=== PATIENT | female | born 1940 | race Caucasian/White ===

== ENCOUNTER 2021-02-14 01:33 | Emergency (ER) | payer BC ==
[~2021-02-14] VITALS: Ht 162.6 cm; Wt 72.7 kg
[2021-02-14 02:02] VITALS: BP 161/69
--- NOTE | 2021-02-14 02:26 | PHYS DOC ---
Past Medical History Additional Past Medical Histor: chronic leg cramps Past Surgical History: Hysterectomy General Adult EDM: Chief Complaint: MULTIPLE TRAUMA/FALL HPI: HPI: Patient is a 80 year old female who present to ER for evaluation of head injury. Patient has history of chronic leg cramping, she woke up this morning with severe leg cramping that she attributes as [employer]. Patient was having cramping in her leg so she got up out of her bed walked into her kitchen then she fell down on the floor. Patient did not have any chest pain or headache prior to the fall. Patient struck the back of her head on the ground, had a hematoma in the back of her head, patient was acting confused. Patient denies any back pain, no upper or lower extremity pain. Patient denies any chest pain or any trouble breathing. Patient has no history of diabetic. EMS were called, they checked her blood sugar and it was 95. Her family elected to bring her to the ER by private vehicle Review of Systems: Review of Systems: Constitutional: Denies fever or chills. [] Eyes: Denies change in visual acuity. [] HENT: Denies nasal congestion or sore throat. Positive for head injury Respiratory: Denies cough or shortness of breath. [] Cardiovascular: Denies chest pain or edema. [] GI: Denies abdominal pain, nausea, vomiting, bloody stools or diarrhea. [] : Denies dysuria. [] Musculoskeletal: Denies back pain or joint pain. [] Integument: Denies rash. [] Neurologic: Positive for headache, no focal weakness or numbness. Endocrine: Denies polyuria or polydipsia. [] Lymphatic: Denies swollen glands. [] Psychiatric: Denies depression or anxiety. [] Heart Score: C/O Chest Pain: N/A Risk Factors: Risk Factors: DM, Current or recent (<one month) smoker, HTN, HLP, family history of CAD, obesity. Risk Scores: Score 0 - 3: 2.5% MACE over next 6 weeks - Discharge Home Score 4 - 6: 20.3% MACE over next 6 weeks - Admit for Clinical Observation Score 7 - 10: 72.7% MACE over next 6 weeks - Early Invasive Strategies Allergies: Allergies: Allergies Coded Allergies Type Severity Reaction Last Updated Verified No Known Drug Allergies 02/14/21 No Physical Exam: PE: Constitutional: Well developed, well nourished, no acute distress, non-toxic appearance. [] HENT: Normocephalic, large goose egg on occipital area, bilateral external ears normal, oropharynx moist, no oral exudates, nose normal. [] Eyes: PERRLA, EOMI, conjunctiva normal, no discharge. [] Neck: Normal range of motion, no tenderness, supple, no stridor. [] Cardiovascular:Heart rate regular rhythm, no murmur [] Lungs & Thorax: Bilateral breath sounds clear to auscultation [] Abdomen: Bowel sounds normal, soft, no tenderness, no masses, no pulsatile masses. [] Skin: Warm, dry, no erythema, no rash. [] Back: No tenderness, no CVA tenderness. [] Extremities: No tenderness, no cyanosis, no clubbing, ROM intact, no edema. [] Neurologic: Alert and oriented X 3, normal motor function, normal sensory function, no focal deficits noted. [] Psychologic: Affect normal, judgement normal, mood normal. [] Current Patient Data: Labs: Laboratory Tests Test 02/14/21 02:13 Glucose (Fingerstick) 142 mg/dL (70-99) H Vital Signs: Vital Signs Date Time Temp Pulse Resp B/P (MAP) Pulse Ox O2 Delivery O2 Flow Rate FiO2 02/14/21 02:02 97.7 81 18 161/69 98 Room Air 97.7 EKG: EKG: EKG was done at 2028, heart rate 74 bpm, sinus rhythm, no ST segment elevation. Radiology/Procedures: Radiology/Procedures: [][facility] [address] [place] [address] IMAGING REPORT Signed PATIENT: ANN FOX JACCOUNT: [id number] : 1940 LOCATION: ER AGE: 80 SEX: F EXAM STATUS: REG ER ORD. PHYSICIAN: DAVINA QUILES DO REASON: FELL AT HOME, HIT BACK OF HEAD, DURANT, NECK PAIN PROCEDURE: CT HEAD AND CERVICAL SPINE WO EXAM: CT head and cervical spine without contrast INDICATION: Fell at home, hit back of head, headache and neck pain COMPARISON: None TECHNIQUE: Axial CT imaging through the head and cervical spine without intravenous contrast. Sagittal and coronal reformats of the cervical spine were obtained. One or more of the following individualized dose reduction techniques were utilized for this examination: 1. Automated exposure control 2. Adjustment of the mA and/or kV according to patient size 3. Use of iterative reconstruction technique. FINDINGS: CT head: The ventricles and sulci are prominent. Salvador-white matter differentiation is maintained. There is no intracranial hemorrhage, acute infarct, or mass lesion. Basal cisterns are clear. The skull is intact. There is a left parietal scalp hematoma.. Mild mucosal thickening in the inferior right maxillary sinus. Globes and orbits are intact. CT cervical spine: No acute fracture. There is minimal listhesis at multiple levels. There is moderate disc space narrowing at C2-C3 and C4-C5. Mild disc space narrowing at the remaining levels. Small anterior osteophytes in the lower cervical spine. Multilevel facet arthrosis and mild foraminal narrowing, greater on the right. Prevertebral soft tissues is normal. IMPRESSION: 1. No acute intracranial abnormality. Left parietal scalp hematoma. 2. No acute osseous abnormality cervical spine. 3. 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 Electronically signed by: Radhika Ogden MD (02/14/2021 3:06 AM) [id number] DICTATED and SIGNED BY: RADHIKA OGDEN MD DATE: 02/14/21 [id number] 0 Course & Med Decision Making: Course & Med Decision Making Pertinent Labs and Imaging studies reviewed. (See chart for details) Patient is a 80-year-old female who was brought here by family due to head injury, CT head and C-spine did not show any problem, EKG was normal, lab work came back normal as well. Patient has chronic leg cramping syndrome, patient will need to follow-up with her family physician for reevaluation treatment on Wednesday. Viral Disclaimer: Viral Disclaimer: This electronic medical record was generated, in whole or in part, using a voice recognition dictation system. Departure Departure Impression: Primary Impression: Closed head injury Additional Impression: Concussion Disposition: HOME / SELF CARE / HOMELESS Condition: IMPROVED Referrals: OSKAR PINEDA MD (PCP) Follow up with your doctor on Wednesday for reevaluation Patient Instructions: Concussion and Brain Injury, Head Injury, Adult Additional Instructions: Thank you for visiting our Emergency Department. We appreciate you trusting us with your care. If any additional problems come up don't hesitate to return to visit us. Please follow up with your primary care provider so they can plan additional care if needed and know about the problem that you had. If symptoms worsen come back to the Emergency Department. Any concerning symptoms that start such as chest pain, shortness of air, weakness or numbness on one side of the body, running high fevers or any other concerning symptoms return to the ER. DAVINA QUILES DO Feb 14, 2021 02:26
--- NOTE | 2021-02-14 03:08 | RAD ---
EXAM: CT head and cervical spine without contrast INDICATION: Fell at home, hit back of head, headache and neck pain COMPARISON: None TECHNIQUE: Axial CT imaging through the head and cervical spine without intravenous contrast. Sagitta l and coronal reformats of the cervical spine were obtained. One or more of the following individualized dose reduction techniques were utilized for this examinat ion: 1. Automated exposure control 2. Adjustment of the mA and/or kV according to patient size 3. Use of iterative reconstruction technique. FINDINGS: CT head: The ventricles and sulci are prominent. Salvador-white matter differentiation is maintained. There is no intracranial hemorrhage, acute infarct, or mass lesion. Basal cisterns are clear. The skull is intact. There is a left parietal scalp hematoma.. Mild mucosal thickening in the inferio r right maxillary sinus. Globes and orbits are intact. CT cervical spine: No acute fracture. There is minimal listhesis at multiple levels. There is moderate disc space narrow ing at C2-C3 and C4-C5. Mild disc space narrowing at the remaining levels. Small anterior osteophytes in the lower cervical spine. Multilevel facet arthrosis and mild foraminal narrowing, greater on the right. Prevertebral soft tissues is normal. IMPRESSION: 1. No acute intracranial abnormality. Left parietal scalp hematoma. 2. No acute osseous abnormality cervical spine. 3. 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 Electronically signed by: Radhika Ogden MD (02/14/2021 3:06 AM) [id number]
[2021-02-14 04:00] LABS: BASO # 0.1 x10^3/uL (0.0-0.2); BASO % 1 % (0-3); EOS % 0 % (0-3); HEMATOCRIT 43.1 % (36.0-47.0); HEMOGLOBIN 14.9 g/dL (12.0-15.5); LYMPH # 1.7 x10^3/uL (1.0-4.8); LYMPH % 14 % (24-48); MEAN CORPUSCULAR HEMOGLOBIN 31 pg (25-35); MEAN CORPUSCULAR HGB CONC 35 g/dL (31-37); MEAN CORPUSCULAR VOLUME 90 fL (79-100); MONO # 1.1 x10^3/uL (0.0-1.1); MONO % 9 % (0-9); NEUT # 9.3 x10^3/uL (1.8-7.7); NEUT % 76 % (31-73); PLATELET COUNT 180 x10^3/uL (140-400); RED BLOOD COUNT 4.77 x10^6/uL (3.50-5.40); RED CELL DISTRIBUTION WIDTH 13.5 % (11.5-14.5); WHITE BLOOD COUNT 12.3 x10^3/uL (4.0-11.0)
[2021-02-14 04:21] LABS: CALCIUM 9.2 mg/dL (8.5-10.1); CREATININE 0.9 mg/dL (0.6-1.0); GFR 60.1; POTASSIUM 3.7 mmol/L (3.5-5.1)
[2021-02-14 04:27] LABS: ALBUMIN 3.9 g/dL (3.4-5.0); ALBUMIN/GLOBULIN RATIO 1.1 (1.0-1.7); MAGNESIUM 2.2 mg/dL (1.8-2.4); TOTAL BILIRUBIN 0.4 mg/dL (0.2-1.0); TOTAL PROTEIN 7.5 g/dL (6.4-8.2)
--- NOTE | 2021-02-14 15:52 | EKG ---
[facility] [address] [place] [address] Test Date: 2021-02-14 Test Time: 03:29:51 Pat Name: ANN FOX Department: Room: Gender: F [employer]: : 1940 Requested By: DAVINA QUILES Order Number: [id number] Reading MD: Measurements Intervals [place] Rate: 74 P: 53 NM: 188 QRS: 33 QRSD: 84 T: 126 QT: 368 QTc: 409 Interpretive Statements SINUS RHYTHM ST & T ABNORMALITY, CONSIDER INFERIOR ISCHEMIA OR LEFT VENTRICULAR STRAIN T ABNORMALITY IN HIGH LATERAL LEADS ABNORMAL ECG RI6.02 No previous ECG available for comparison
== END 2021-02-14 05:49 | disposition home or self-care (01) ==
LOC: ER 01:33
DX: S06.0X9A Concussion with loss of consciousness of unspecified duration, initial encounter (principal); R25.2 Cramp and spasm; W18.39XA Other fall on same level, initial encounter; Y93.01 Activity, walking, marching and hiking; Y92.090 Kitchen in other non-institutional residence as the place of occurrence of the external cause; Y99.8 Other external cause status
CPT/HCPCS: 36415; 70450; 72125; 80053; 82962; 83735; 83880; 84484; 85025; 93005; 99285-25